=== PATIENT | male | born 1975 ===

== ENCOUNTER 2024-05-13 21:15 | Emergency (ER) | payer OTHER, SELFPAY ==
[2024-05-13 21:51] VITALS: BP 137/97; PULSE 101; RESP 20; TEMP 36.7; O2SAT 96; BMI 29.4
--- NOTE | 2024-05-13 22:05 | PC.NURSE ---
LEIGH decker attempted in triage however patient does not feel he will be able to tolerate it with his continued nausea and dry heaving adding that he would prefer it IV form. medication charted as not given
[2024-05-13 22:19] LABS: MANUAL DIFF FLAG NO
[2024-05-13 22:24] LABS: Basophils Percent Auto 0.2 % (0-2); Hematocrit 51.2 % (42.0-52.0); Hemoglobin 17.8 g/dl (14.0-18.0); Imm Gran Abs Auto 0.08 X10*3/uL (0.00-0.03); Imm Gran Pct Auto 0.6 % (0.0-0.4); Lymphocytes Absolute Auto 0.9 X10*3/uL (1.2-4.9); Lymphocytes Percent Auto 6.1 % (20-40); Mean Corpuscular HGB Conc 34.8 g/dl (31.0-36.0); Mean Corpuscular Hemoglobin 29.4 pg (27.0-33.0); Mean Corpuscular Volume 84.5 fL (80.0-98.0); Mean Platelet Volume 10.5 fL (9.4-12.4); Monocytes Absolute Auto 0.4 X10*3/uL (0.1-1.2); Monocytes Percent Auto 3.1 % (2-11); Neutrophils Absolute Auto 12.6 x10*3/uL (2.0-8.3); Platelet Count 282 X10*3/uL (160-400); Red Blood Count 6.06 X10*6/uL (4.60-5.80); Red Cell Distribution Width 12.6 % (11.0-16.0)
--- NOTE | 2024-05-13 22:26 | ED.ABDPAIN ---
HPI - Abdominal Pain General Chief Complaint: Abdominal Pain Stated Complaint: N/V/D Time Seen by Provider: 05/13/24 22:18 Source: patient Mode of arrival: ambulatory Limitations: no limitations History of Present Illness ED Provider: HPI narrative: Patient's the healthy came here for nausea vomiting started 3 days ago unable to hold any liquids down vomiting more than 10 times no diarrhea does have abdominal cramping also had fever yesterday patient does have history of similar complaints in the past but never like this Related Data Previous Rx's ?Medication ?Instructions ?Recorded ondansetron 4 mg disintegrating 4 mg PO Q6-8H PRN nausea and 05/14/24 tablet vomiting #10 tabs Allergies Allergy/AdvReac Type Severity Reaction Status Date / Time morphine Allergy Anaphylaxis Verified 05/13/24 21:54 Review of Systems Review of Systems Yes all other systems are reviewed and are negative [facility] Social History Social History Advance Directives: No Advance Directives Information Provided: No Physical Exam ED Vital Signs: Vital Signs - 24 hr 05/13/24 21:51 Temperature 98.0 F Pulse Rate 101 H Respiratory Rate 20 Blood Pressure 137/97 H Pulse Oximetry 96 Oxygen Delivery Method Room Air BMI result Body Mass Index 29.4 Appearance: Alert. Oriented X3. No acute distress. Eyes: No pallor or icterus ENT: Pharynx normal. Oral Mucosa moist Neck: Normal inspection. Neck supple. CVS: Normal heart rate and rhythm. Pulses normal. Respiratory: No respiratory distress. Equal air entry bilateral, no wheezing/rales/rhonchi Abdomen: Soft and mild discomfort on left side Bowel sounds are present, no mass palpable, no CVA tenderness Skin: Skin warm and dry. Normal skin color. Normal skin turgor. Extremities: No lower extremity edema. No calf tenderness Neuro: Oriented X 3. Medical Decision Making Medical Decision Making [facility] Narrative: Patient gets with gastroenteritis feeling much better after IV fluids and antiemetics taking p.o. fluids now discharge patient home labs are stable no acute abdomen Lab Data [facility] Lab Attestation statement: I reviewed the patient's lab results. 05/13/24 22:12 05/13/24 22:12 Labs: Lab Results 01/05/25 01/05/25 01/06/25 Range/Units 22:12 22:44 00:01 WBC 14.0 H (4.8-10.8) X10*3/uL RBC 6.06 H (4.60-5.80) X10*6/uL Hgb 17.8 (14.0-18.0) g/dl Hct 51.2 (42.0-52.0) % MCV 84.5 (80.0-98.0) fL MCH 29.4 (27.0-33.0) pg MCHC 34.8 (31.0-36.0) g/dl RDW 12.6 (11.0-16.0) % Plt Count 282 (160-400) X10*3/uL MPV 10.5 (9.4-12.4) fL Immature Gran % (Auto) 0.6 H (0.0-0.4) % Neut % (Auto) 90.0 H (45-73) % Lymph % (Auto) 6.1 L (20-40) % [place] % (Auto) 3.1 (2-11) % Eos % (Auto) 0.0 (0-4) % Baso % (Auto) 0.2 (0-2) % Lymph # (Auto) 0.9 L (1.2-4.9) X10*3/uL [place] # (Auto) 0.4 (0.1-1.2) X10*3/uL Eos # (Auto) 0.0 (0.0-0.4) X10*3/uL Baso # (Auto) 0.0 (0.0-0.2) X10*3/uL Abs Immat Gran (auto) 0.08 H (0.00-0.03) X10*3/uL Absolute Neuts (auto) 12.6 H (2.0-8.3) x10*3/uL Absolute Nucleated RBC 0.000 (0.0-0.012) X10*3/uL Nucleated RBC % (auto) 0.0 (0.0-0.2) /100WBC Sodium 140 (135-145) mmol/L Potassium 3.9 (3.3-5.1) mmol/L Chloride 104 (96-108) mmol/L Carbon Dioxide 21 L (22-29) mmol/L Anion Gap 19 (12-20) BUN 14 (9-16) mg/dL Creatinine 0.87 (0.5-1.4) mg/dL Estim Creat Clear Calc 109.5 Estimated GFR > 60 Random Glucose 137 H (60-115) mg/dL Lactic Acid 1.8 (0.5-2.0) mmol/L Calcium 9.9 (8.4-10.2) mg/dL Total Bilirubin 2.0 H (0.0-1.0) mg/dL AST 19 (5-37) U/L ALT 26 (0-40) U/L Alkaline Phosphatase 109 (39-117) U/L Total Protein 8.3 H (6.5-8.0) g/dL Albumin 4.8 (3.5-5.0) g/dL Urine Color Dark Yellow Urine Appearance Clear Urine pH 6.0 (5.0-9.0) Ur Specific [place] >= 1.030 H (1.005-1.025) Urine Protein Trace (Neg-Trace) mg/dL Urine Glucose (UA) 100 H (Negative) mg/dL Urine Ketones 80 (Negative) mg/dL Urine Blood Negative (Negative) Urine Nitrite Negative (Negative) Ur Leukocyte Esterase Negative (Negative) Urine RBC 0-2 (0-2) /HPF Urine WBC 0-5 (0-5) /HPF Ur Squamous Epith Cells 0-2 (0-2) /HPF Urine Bacteria None Seen (None Seen) Hyaline Casts 0-2 (0-2) /LPF Influenza Type A (PCR) NEGATIVE (Negative) Influenza Type B (PCR) NEGATIVE (Negative) RSV RNA Qual (PCR) NEGATIVE (Negative) SARS-CoV-2 RNA (RT-PCR) NEGATIVE (Negative) Medications Administered Discontinued Medications Generic Name Dose Route Start Last Admin Trade Name Freq PRN Reason Stop Dose Admin Sodium Chloride 1,000 mls @ 999 mls/hr 05/13/24 22:50 05/14/24 00:05 Ns IV 05/13/24 23:50 Infused .Q1H1M ONE Infusion Sodium Chloride 1,000 mls @ 999 mls/hr 05/14/24 01:34 05/14/24 03:33 Ns IV 05/14/24 02:34 Infused .Q1H1M ONE Infusion Ketorolac Tromethamine 30 mg 05/13/24 23:38 05/14/24 00:15 Ketorolac Tromethamine 30 Mg/Ml Vial IVPUSH 05/13/24 23:39 30 mg ONCE ONE Administration Ondansetron HCl 4 mg 05/13/24 22:01 05/13/24 22:03 Ondansetron Odt 4 Mg Tab.Rapdis TRANSLINGU 05/13/24 22:02 Not Given ONCE ONE Ondansetron HCl 4 mg 05/13/24 22:52 05/13/24 23:08 Ondansetron Hcl 4 Mg/2 Ml Vial IVPUSH 05/13/24 22:53 4 mg ONCE ONE Administration Ondansetron HCl 4 mg 05/14/24 01:34 05/14/24 02:26 Ondansetron Hcl 4 Mg/2 Ml Vial IVPUSH 05/14/24 01:35 4 mg ONCE ONE Administration Discharge Plan Discharge Clinical Impression: Gastroenteritis Patient Disposition: Home, Self-Care Instructions: Acute Nausea and Vomiting (ED) Additional Instructions: Drink plenty of fluids Medicine for nausea as prescribed Follow up with your PCP if not better Prescriptions: New ondansetron 4 mg tablet,disintegrating 4 mg PO Q6-8H PRN (Reason: nausea and vomiting) Qty: 10 0RF Interventions: ED Discharge Assessment Last Done: 05/14/24 03:32 Discharge Date/Time: 05/14/24 03:40 Print Language: Rwandan
[2024-05-13 22:35] LABS: Lactic Acid 1.8 mmol/L (0.5-2.0)
[2024-05-13 22:37] LABS: Alanine Aminotransferase 26 U/L (0-40); Albumin Level 4.8 g/dL (3.5-5.0); Alkaline Phosphatase 109 U/L (39-117); Anion Gap 19 (12-20); Aspartate Amino Transferase 19 U/L (5-37); Blood Urea Nitrogen 14 mg/dL (9-16); Calcium 9.9 mg/dL (8.4-10.2); Carbon Dioxide 21 mmol/L (22-29); Chloride 104 mmol/L (96-108); Creatinine Clr Calc Pharmacy 109.5; Estimated Glomerular Filt Rate > 60; Glucose Random 137 mg/dL (60-115); Potassium 3.9 mmol/L (3.3-5.1); Sodium 140 mmol/L (135-145); Total Protein 8.3 g/dL (6.5-8.0)
[2024-05-13 22:49] VITALS: BP 141/94; PULSE 97; RESP 16; TEMP 36.9; O2SAT 94
[2024-05-13] MEDS: 0.9 % Sodium Chloride 1,000 ML 999 ML IV (23:08)
[2024-05-13] MEDS: ondansetron HCL 4 MG/2 ML VIAL IVPUSH (23:08)
[2024-05-13 23:29] LABS: Influenza A PCR NEGATIVE (Negative); Influenza B PCR NEGATIVE (Negative); Resp Syncy Virus RNA Qual PCR NEGATIVE (Negative); SARS COV2 PCR INHOUSE NEGATIVE (Negative)
[2024-05-14 00:07] LABS: Appearance Urine Clear; Color Urine Dark Yellow; Glucose Urine UA 100 mg/dL (Negative); Leukocyte Esterase Urine Negative (Negative); Nitrite Urine Negative (Negative); Specific Gravity - Urine >= 1.030 (1.005-1.025); Urine Blood Negative (Negative); Urine Ketones 80 mg/dL (Negative); Urine Protein Trace mg/dL (Neg-Trace)
[2024-05-14 00:12] LABS: Bacteria Urine None Seen (None Seen); Hyaline Casts Urine 0-2 /LPF (0-2); RBC Urine 0-2 /HPF (0-2); Squamous Epithelial Cell Urine 0-2 /HPF (0-2); WBC Urine 0-5 /HPF (0-5)
[2024-05-14] MEDS: Ketorolac Tromethamine 30 MG/ML VIAL IVPUSH (00:15)
[2024-05-14] MEDS: 0.9 % Sodium Chloride 1,000 ML 999 ML IV (02:22)
[2024-05-14] MEDS: ondansetron HCL 4 MG/2 ML VIAL IVPUSH (02:26)
[2024-05-14 03:32] VITALS: BP 141/94; PULSE 97; RESP 16; TEMP 36.9; O2SAT 94
== END 2024-05-14 03:40 | disposition home or self-care (01) ==
PROVIDERS: Emergency Provider Internal Medicine; PCP Physical Medicine & Rehabilitation
DX: K52.9 Noninfective gastroenteritis and colitis, unspecified (principal); R10.2 Pelvic and perineal pain; R11.2 Nausea with vomiting, unspecified; R25.2 Cramp and spasm; R50.9 Fever, unspecified; Z03.818 Encounter for observation for suspected exposure to other biological agents ruled out; Z79.899 Other long term (current) drug therapy
CPT/HCPCS: 0241U; 36415; 80053; 81001; 83605; 85025; 87040; 96361; 96374; 96375; 96376; 99284; J1885; J2405

== ENCOUNTER 2024-06-17 12:37 | Emergency (ER) | payer OTHER, SELFPAY ==
--- NOTE | ~2024-06-17 | XR_ITS ---
CLINICAL HISTORY: SOB, CP 2 view chest x-ray Comparison: None Findings: The lungs are clear. Heart size is normal. No acute fracture. IMPRESSION: 1. No acute findings. This document has been electronically signed by: Nydia Starr MD on 06/17/2024 13:33:38
[2024-06-17 12:41] VITALS: BP 149/94; PULSE 110; RESP 18; TEMP 37; O2SAT 97; BMI 29.5
--- NOTE | 2024-06-17 12:42 | ED_ITS ---
HPI - Extremity Injury (Upper) General Chief Complaint: Dyspnea Stated Complaint: cold symptoms, diff breathing Time Seen by Provider: 06/17/24 14:20 Source: patient Mode of arrival: ambulatory Limitations: no limitations History of Present Illness ED Provider: Vicenta Albrecht PA-C HPI narrative: Patient is a 49 year old assigned male at with no reported medical history presenting to the emergency department today with a week of feeling unwell. Patient states that over the last week he has felt unwell with fever, chills, and cough. Patient denies any dizziness, lightheadedness, abdominal pain, nausea, vomiting, blurry vision, double vision, loss of vision, chest pain, difficulty breathing, shortness of breath, back pain, night sweats, pain with urination, increased urinary frequency, increased urinary urgency, blood in his urine or stool, syncope or a near syncopal episode, recent trauma or falls, bowel incontinence, bladder incontinence, or any other complaints at this time. Relieving factors: none Exacerbating factors: none Related Data Previous Rx's ?Medication ?Instructions ?Recorded ondansetron 4 mg disintegrating 4 mg PO Q6-8H PRN nausea and 05/14/24 tablet vomiting #10 tabs Allergies Allergy/AdvReac Type Severity Reaction Status Date / Time morphine Allergy Anaphylaxis Verified 06/17/24 12:44 Review of Systems 2 Constitutional: Constitutional: Reports no additional constitutional complaints, Reports chills, Reports fever(s) and Denies night sweats Eyes: Eyes: Reports no additional eye complaints, Denies blurry vision, Denies change in vision, Denies diplopia, Denies eye discharge, Denies loss of vision and Denies eye pain ENT: Denies dizziness Cardiovascular: Cardiovascular: Reports no additional cardiovascular complaints, Denies chest pain, Denies lightheadedness, Denies Loss of Consciousness and Denies dyspnea Respiratory: Respiratory: Reports no additional respiratory complaints, Reports cough and Denies dyspnea Gastrointestinal: Gastrointestinal: Reports no additional gastrointestinal complaints, Denies abdominal pain, Denies melena, Denies hematochezia, Denies change in bowel habits and Denies change in stool character Genitourinary: Genitourinary: Reports no additional male genitourinary complaints, Denies hematuria, Denies oliguria, Denies difficulty urinating, Denies dysuria, Denies urinary frequency, Denies urinary hesitancy, Denies urinary incontinence and Denies urinary urgency Musculoskeletal: Musculoskeletal: Reports no additional musculoskeletal complaints, Denies numbness and Denies tingling Neurologic: Denies dizziness, Denies loss of vision, Denies numbness and Denies tingling Psychiatric: Psychiatric: Reports no additional psychiatric complaints Endocrine: Endocrine: Reports no additional endocrine complaints Hematologic/Lymphatic: Hematologic/Lymphatic: Reports no additional hematologic/lymphatic complaints Allergic/Immunologic: Allergic/Immunologic: Reports no additional allergic/immunologic complaints PMFSH Past Medical History Attestation statement: The following information was validated with the patient. Source: old records reviewed and nursing notes reviewed Social History Social History Advance Directives: No Advance Directives Information Provided: No Physical Exam 2 Vital Signs: Vital Signs: Last Vital Signs Temp 98.6 F 06/17/24 12:41 Pulse 110 H 06/17/24 12:41 Resp 18 06/17/24 12:41 BP 149/94 H 06/17/24 12:41 Pulse Ox 97 06/17/24 12:41 O2 Del Method Room Air 06/17/24 12:41 BMI result Body Mass Index 29.5 Const: General: cooperative, no acute distress, alert and awake Nutritional Appearance: well nourished Orientation/consciousness: patient oriented x3 Limitations: no limitations HEENT: Head: Yes normal to inspection and Yes atraumatic Ears: hearing grossly normal bilaterally and external ears normal General nose exam: Normal external nose present, no nasal discharge noted and no epistaxis Face and sinus: Yes normal facial exam, No abrasion and No laceration Mouth: Normal oral and palatal mucosa present, no drooling and no muffled voice Eyes: General: appearance normal, both eyes and all related structures P eriorbital: periorbital findings normal Eyelids: Yes eyelids normal C onjunctivae: conjunctivae normal Pupils: Equal, round and reactive pupils present EOM: EOMs intact bilaterally Neck: Neck: Yes normal visual inspection, Yes full ROM and Yes no lymphadenopathy Chest: Chest palpation & inspection: normal inspection of the chest Resp: Effort & Inspection: normal respiratory effort and able to speak in complete sentences GI: Inspection: Yes normal to inspection Neuro: General: patient oriented x3, moves all extremities and CN's II-XI intact bilaterally Cranial nerves: Yes Equal, round and reactive pupils present Cognition (Neuro): normal cognition Extrem: General: Yes normal to inspection, Yes full ROM and Yes capillary refill normal Psych: Appearance: grossly normal Mental Status: mental status grossly normal Affect: normal affect Attitude: cooperative Thought process: N ormal thought process present Thought content: Normal thought content present Insight: Good insight present (Psych) Course Course Course Narrative: This is an RME performed by Esme Cano CNP: Additional HPI, ROS, PE not included below will be deferred to primary provider. Patient is a 49-year-old male who presents emergency department for evaluation of cold symptoms over the past week progressively worsening over past 3 days. Not having constant discomfort diffusely throughout the anterior chest with associated shortness of breath. Has been taking NyQuil without any improvement. Endorsing having chills over the past 2 days. Plan: Serum labs, EKG, viral serologies, CXR Medical Decision Making Medical Decision Making [facility] Narrative: Patient is a 49 year old assigned male at with no reported medical history presenting to the emergency department today with a week of feeling unwell. Patient's physical exam was unremarkable. Patient's blood work was unremarkable. Patient's EKG was unremarkable. Patient's chest x-ray showed no acute process. Patient's influenza test was positive. I explained my physical exam findings as well as all test results to the patient. I answered all questions asked by the patient. I stressed the importance of the patient taking his medication as directed (either prescribed or as the over the counter packaging recommends). I stressed the importance of the patient following up with his primary care provider. I stressed the importance of the patient returning to the emergency department immediately if his symptoms were to worsen or if he were to develop any dizziness, shortness of breath, difficulty breathing, chest pain, blurry vision, loss of vision, nausea, vomiting, abdominal pain, fever, chills, back pain, or any other complaints. Patient verbalized agreement and understanding with this treatment plan and discharge. Differential Diagnosis Differential Diagnoses: The differential diagnosis associated with the presentation includes Influenza RSV COVID-19 PNA Admission/Observation Consideration of admission/observation: Escalation of care including admission/observation considered Patient would have been admitted to the hospital had his work up had any findings where hospital admission was appropriate and his clinical presentation warranted hospital admission. Lab Data [facility] Lab Attestation statement: I reviewed the patient's lab results. My interpretation of these results are in the MDM Rationale portion of this note. 06/17/24 13:03 06/17/24 13:03 Labs: Lab Results 06/17/24 Range/Units 13:03 WBC 6.3 (4.8-10.8) X10*3/uL RBC 5.33 (4.60-5.80) X10*6/uL Hgb 15.6 (14.0-18.0) g/dl Hct 45.0 (42.0-52.0) % MCV 84.4 (80.0-98.0) fL MCH 29.3 (27.0-33.0) pg MCHC 34.7 (31.0-36.0) g/dl RDW 12.8 (11.0-16.0) % Plt Count 192 D (160-400) X10*3/uL MPV 10.2 (9.4-12.4) fL Immature Gran % (Auto) 0.3 (0.0-0.4) % Neut % (Auto) 64.8 (45-73) % Lymph % (Auto) 21.7 (20-40) % [place] % (Auto) 11.1 H (2-11) % Eos % (Auto) 1.6 (0-4) % Baso % (Auto) 0.5 (0-2) % Lymph # (Auto) 1.4 (1.2-4.9) X10*3/uL [place] # (Auto) 0.7 (0.1-1.2) X10*3/uL Eos # (Auto) 0.1 (0.0-0.4) X10*3/uL Baso # (Auto) 0.0 (0.0-0.2) X10*3/uL Abs Immat Gran (auto) 0.02 (0.00-0.03) X10*3/uL Absolute Neuts (auto) 4.1 (2.0-8.3) x10*3/uL Absolute Nucleated RBC 0.000 (0.0-0.012) X10*3/uL Nucleated RBC % (auto) 0.0 (0.0-0.2) /100WBC PT 13.0 H (10.9-12.4) SEC INR 1.1 (0.9-1.1) Sodium 137 (135-145) mmol/L Potassium 3.3 (3.3-5.1) mmol/L Chloride 105 (96-108) mmol/L Carbon Dioxide 21 L (22-29) mmol/L Anion Gap 14 (12-20) BUN 8 L (9-16) mg/dL Creatinine 0.90 (0.5-1.4) mg/dL Estim Creat Clear Calc 105.9 Estimated GFR > 60 Random Glucose 96 (60-115) mg/dL Calcium 8.8 D (8.4-10.2) mg/dL Magnesium 1.8 (1.6-2.6) mg/dL Total Bilirubin 0.9 (0.0-1.0) mg/dL AST 27 (5-37) U/L ALT 28 (0-40) U/L Alkaline Phosphatase 92 (39-117) U/L Troponin I High Sens < 2.7 (<3.5-35.0) ng/L B-Natriuretic Peptide < 10 (<100) pg/mL Total Protein 7.5 (6.5-8.0) g/dL Albumin 4.3 (3.5-5.0) g/dL Influenza Type A (PCR) POSITIVE A (Negative) Influenza Type B (PCR) NEGATIVE (Negative) RSV RNA Qual (PCR) NEGATIVE (Negative) SARS-CoV-2 RNA (RT-PCR) NEGATIVE (Negative) Independent Interpretation I performed an independent interpretation of an: EKG and Plain X-Ray Interpretation: My interpretation is in agreement with the radiologist's impression of this imaging study. L CLINICAL HISTORY: SOB, CP 2 view chest x-ray Comparison: None Findings: The lungs are clear. Heart size is normal. No acute fracture. IMPRESSION: 1. No acute findings. This document has been electronically signed by: Nydia Starr MD on 06/17/2024 13:33:38 Dictated By: Nydia Starr MD Signed By: Electronically signed by Nydia Starr MD 06/17/24 1334 Vent. Rate: 93 BPM Atrial Rate: 93 BPM P-R Int: 156 ms QRS Dur: 70 ms QT Int: 324 ms P-R-T Axes: 34 -11 37 degrees QTcB Int: 402 ms Normal sinus rhythm Normal ECG No previous ECGs available DD/ 1300 Radiology Impression Discussion of test interpretation with radiology: I have reviewed the radiologist's reading. Discharge Plan Discharge Clinical Impression: Influenza Patient Disposition: Home, Self-Care Instructions: Influenza (DC) Additional Instructions: Drink plenty of fluid and take ibuprofen and / or tylenol to manage your fever. Follow up with your primary care provider. Return to the emergency department immediately if your symptoms worsen or if you develop any dizziness, shortness of breath, difficulty breathing, chest pain, blurry vision, loss of vision, nausea, vomiting, abdominal pain, fever, chills, back pain, or any other complaints. Prescriptions: No Action ondansetron 4 mg tablet,disintegrating 4 mg PO Q6-8H PRN (Reason: nausea and vomiting) Qty: 10 0RF Referrals: Jaspreet Pelletier MD [Primary Care Provider] - Stand Alone Forms: Work/School Release Print Language: Montenegrin
--- NOTE | 2024-06-17 12:43 | ECG_ITS ---
Test Reason : SOB, CP Blood Pressure : */* mmHG Vent. Rate : 93 BPM Atrial Rate : 93 BPM P-R Int : 156 ms QRS Dur : 70 ms QT Int : 324 ms P-R-T Axes : 34 -11 37 degrees QTcB Int : 402 ms Normal sinus rhythm Normal ECG No previous ECGs available Referred By: Luh Cano Electronically Signed By: ZEINAB ANDRADE MD
[2024-06-17 13:07] LABS: MANUAL DIFF FLAG NO
[2024-06-17 13:10] LABS: Basophils Percent Auto 0.5 % (0-2); Eosinophils Absolute Auto 0.1 X10*3/uL (0.0-0.4); Eosinophils Percent Auto 1.6 % (0-4); Hemoglobin 15.6 g/dl (14.0-18.0); Imm Gran Abs Auto 0.02 X10*3/uL (0.00-0.03); Imm Gran Pct Auto 0.3 % (0.0-0.4); Lymphocytes Absolute Auto 1.4 X10*3/uL (1.2-4.9); Lymphocytes Percent Auto 21.7 % (20-40); Mean Corpuscular HGB Conc 34.7 g/dl (31.0-36.0); Mean Corpuscular Hemoglobin 29.3 pg (27.0-33.0); Mean Corpuscular Volume 84.4 fL (80.0-98.0); Mean Platelet Volume 10.2 fL (9.4-12.4); Monocytes Absolute Auto 0.7 X10*3/uL (0.1-1.2); Monocytes Percent Auto 11.1 % (2-11); Neutrophils Absolute Auto 4.1 x10*3/uL (2.0-8.3); Neutrophils Percent Auto 64.8 % (45-73); Platelet Count 192 X10*3/uL (160-400); Red Blood Count 5.33 X10*6/uL (4.60-5.80); Red Cell Distribution Width 12.8 % (11.0-16.0); White Blood Count 6.3 X10*3/uL (4.8-10.8)
[2024-06-17 13:14] LABS: INTERNATIONAL NORM RATIO 1.1 (0.9-1.1)
[2024-06-17 13:22] LABS: Alanine Aminotransferase 28 U/L (0-40); Albumin Level 4.3 g/dL (3.5-5.0); Alkaline Phosphatase 92 U/L (39-117); Anion Gap 14 (12-20); Aspartate Amino Transferase 27 U/L (5-37); Bilirubin Total 0.9 mg/dL (0.0-1.0); Blood Urea Nitrogen 8 mg/dL (9-16); Calcium 8.8 mg/dL (8.4-10.2); Carbon Dioxide 21 mmol/L (22-29); Chloride 105 mmol/L (96-108); Creatinine Clr Calc Pharmacy 105.9; Estimated Glomerular Filt Rate > 60; Glucose Random 96 mg/dL (60-115); Magnesium 1.8 mg/dL (1.6-2.6); Potassium 3.3 mmol/L (3.3-5.1); Sodium 137 mmol/L (135-145); Total Protein 7.5 g/dL (6.5-8.0)
[2024-06-17 13:28] LABS: B Type Natriuretic Peptide < 10 pg/mL (<100)
[2024-06-17 13:29] LABS: Troponin-I High Sensitivity < 2.7 ng/L (<3.5-35.0)
[2024-06-17 13:45] LABS: Influenza A PCR POSITIVE (Negative); Influenza B PCR NEGATIVE (Negative); Resp Syncy Virus RNA Qual PCR NEGATIVE (Negative); SARS COV2 PCR INHOUSE NEGATIVE (Negative)
[2024-06-17 15:26] VITALS: BP 149/94; PULSE 110; RESP 18; TEMP 37; O2SAT 97
== END 2024-06-17 15:26 | disposition home or self-care (01) ==
PROVIDERS: Nurse Practitioner Family; Emergency Provider Emergency Medicine; PCP Physical Medicine & Rehabilitation
DX: J10.1 Influenza due to other identified influenza virus with other respiratory manifestations (principal); R06.02 Shortness of breath; R07.89 Other chest pain; Z03.818 Encounter for observation for suspected exposure to other biological agents ruled out; Z79.899 Other long term (current) drug therapy
CPT/HCPCS: 0241U; 71046; 80053; 83735; 83880; 84484; 85025; 85610; 93005; 99282; 99283

== ENCOUNTER → 2024-06-17 12:43 | Outpatient (BNV) | payer OTHER, SELFPAY | PROVIDERS: PCP Physical Medicine & Rehabilitation; Visit Provider Radiology Diagnostic Radiology | DX: R06.02 Shortness of breath (principal); R07.9 Chest pain, unspecified | CPT/HCPCS: 71046 ==

== ENCOUNTER → 2024-06-17 12:43 | Outpatient (BNV) | payer OTHER, SELFPAY | PROVIDERS: Emergency Provider Emergency Medicine; PCP Physical Medicine & Rehabilitation; Visit Provider Internal Medicine Cardiovascular Disease | DX: R07.9 Chest pain, unspecified (principal); R06.02 Shortness of breath | CPT/HCPCS: 93010 ==